=== PATIENT | male | born 1970 | race Caucasian/White ===

== ENCOUNTER 2016-09-30 12:04 | Emergency (ER) | payer SELFPAY ==
[2016-09-30 12:39] LABS: BILIRUBIN NEGATIVE (NEGATIVE); BLOOD 1+ Ery/uL (NEGATIVE); CLARITY CLEAR (CLEAR); COLOR YELLOW (YELLOW); GLUCOSE (U) NORMAL (NORMAL); KETONE (U) NEGATIVE (NEGATIVE); LEUKOCYTES NEGATIVE Leu/uL (NEGATIVE); NITRITE NEGATIVE (NEGATIVE); PROTEIN 2+ mg/dL (NEGATIVE); SPECIFIC GRAVITY >=1.030 (1.001-1.030); UROBILINOGEN 0.2 mg/dL (0.2-1.0)
[2016-09-30 12:51] LABS: BACTERIA 1+
[2016-09-30 12:52] LABS: MUCOUS TRACE
[2016-09-30 12:54] LABS: BASOPHIL 0.2 % (0-2); HCT 44.4 % (42.0-52.0); HGB 15.6 g/dl (13.2-18.0); LYMPHOCYTE 13.6 % (15-48); MCH 29.1 pg (25.0-31.0); MCHC 35.1 g/dL (32.0-36.0); MCV 82.7 fL (78.0-100.0); MONOCYTE 7.9 % (0-12); MPV 9.5 fL (6.0-9.5); NEUTROPHIL 77.3 % (41-80); PLT 278 K/uL (150-400); RBC 5.37 M/uL (4.70-6.00); RDW 13.2 % (11.5-14.0); WBC 11.6 K/uL (4.0-10.5)
[2016-09-30 12:57] LABS: AMPHETAMINES POSITIVE (NEGATIVE); BARBITURATES NEGATIVE (NEGATIVE); BENZODIAZEPINES NEGATIVE (NEGATIVE); COCAINE NEGATIVE (NEGATIVE); MARIJUANA (THC) POSITIVE (NEGATIVE); METHADONE NEGATIVE (NEGATIVE); TRICYCLIC ANTIDEPRESSANT NEGATIVE (NEGATIVE)
[2016-09-30 13:10] LABS: ALCOHOL (ETOH) MEDICAL NONE DETECTED
[2016-09-30 13:15] LABS: ALBUMIN 4.5 g/dL (3.5-5.0); BILIRUBIN - TOTAL 0.4 mg/dL (0.1-1.0); CREATININE 1.1 mg/dL (0.7-1.2); GLOBULIN (CALCULATION) 3.3 g/dL (2.2-4.2); POTASSIUM 3.5 mmol/L (3.5-5.1); TOTAL PROTEIN 7.8 g/dL (6.4-8.3)
== END 2016-09-30 15:01 | disposition home or self-care (01) ==
LOC: FER 12:04
PROVIDERS: Nurse Practitioner
DX: I10 Essential (primary) hypertension (principal); R10.9 Unspecified abdominal pain; R05 Cough; R09.89 Other specified symptoms and signs involving the circulatory and respiratory systems; F17.210 Nicotine dependence, cigarettes, uncomplicated
CPT/HCPCS: 36415; 71020; 80053; 80305; 81001; 84439; 84443; 85025; 87339; 93005; G0480